=== PATIENT | female | born 1965 | race Caucasian/White ===

== ENCOUNTER 2021-06-29 02:25 | Emergency (ER) | payer BC ==
[~2021-06-29] VITALS: Ht 157.5 cm; Wt 79.8 kg
[2021-06-29 02:34] VITALS: BP 119/74
--- NOTE | 2021-06-29 02:45 | NUR ---
KENDALL. TO ER BED 16. AAOX4. NOT IN RESP DISTRESS. BREATHING EVEN AND UNLABORED. TALKING IN FULL SENTENCES. 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 PER PT, SHE IS CURRENTLY ON FLAGYL AND TOOK A CELEBREX. DENIES ANY NEW PRODUCT BEING USED AROUND THE HOUSE. WAS AT THE BEDSIDE FOR EVAL. ORDERS RECEIVED, NOTED AND CARRIED OUT.
[2021-06-29] MEDS ORDERED: IV NS 0.9% 1,000 ML BAG IV ONE (03:00)
[2021-06-29] MEDS ORDERED: diphenhydrAMINE HCL 50 MG/ML VIAL IV ONE (03:00)
[2021-06-29] MEDS ORDERED: FAMOTIDINE/PF INJ 20 MG/2 ML VIAL IV ONE ×2 (03:00→03:07)
[2021-06-29] MEDS ORDERED: methylPREDNISolone SOD SUCC 125 MG/2ML VIAL IV ONE (03:00)
[2021-06-29] MEDS ORDERED: diphenhydrAMINE HCL 50 MG/ML VIAL ONE (03:06)
[2021-06-29] MEDS ORDERED: methylPREDNISolone SOD SUCC 125 MG/2ML VIAL ONE (03:06)
[2021-06-29] MEDS ORDERED: PRED50TA PO (05:22)
[2021-06-29] MEDS ORDERED: FAMO40TA7 PO (05:22)
--- NOTE | 2021-06-29 05:38 | NUR ---
Patient discharged to home in stable condition. Written and verbal after care instructions given. Patient verbalizes understanding of instruction. Pt ambulated out of ED. VSS.
== END 2021-06-29 05:38 | disposition home or self-care (01) ==
LOC: ER 02:25
DX: T78.40XA Allergy, unspecified, initial encounter (principal); L50.9 Urticaria, unspecified; Z79.899 Other long term (current) drug therapy; X58.XXXA Exposure to other specified factors, initial encounter
CPT/HCPCS: 96361; 96374; 96375; 99284; J1200; J2930; J3490; J7030